=== PATIENT | female | born 1930 | race Caucasian/White ===

== ENCOUNTER 2016-07-26 01:35 | Emergency (ER) | payer MEDICARE ==
[2016-07-26] MEDS ORDERED: Albuterol/Ipratropium Neb 3 ML NEB NEB ONE (01:41)
[2016-07-26] MEDS ORDERED: METHYLPREDNISOLONE 125 MG/2 ML VIAL IV ONE (01:41)
[2016-07-26] MEDS ORDERED: NS 1,000 ML IV ONE (01:42)
[2016-07-26 01:46] VITALS: TEMP 98.2; BMI 26.6
--- NOTE | 2016-07-26 01:46 | EDPRACDOC ---
- General Information Chief Complaint: Dyspnea/Resp distress Stated Complaint: SHOB Time Seen by Provider: 07/26/16 01:41 Information Source: Patient, [employer] Mode Of Arrival: Ambulance Home Medications: Home Medications Benzonatate [Tessalon] 200 mg PO TID #20 per 07/26/16 Guaifenesin/Codeine Phosphate [Cheratussin AC Syrup] 5 ml PO Q4-6H #180 liquid 07/26/16 Levofloxacin [Levaquin] 750 mg PO DAILY #7 tablet 07/26/16 Prednisone [Deltasone, Orasone] 20 mg PO BID #12 tab 07/26/16 - History of Present Illness Symptoms Started: TODAY HPI: PT PRESENTS WITH INCREASED SHOB AND NON-PRODUCTIVE COUGH THAT STARTED TONIGHT. PT DENIES NAUSEA, VOMITING, CHILLS OR FEVER. Symptoms: Reports: Cough Recently Treated Infections:: Denies: Otitis media, Pneumonia, URI Recent Medications: Reports: None Relevant History Of: Reports: COPD Shortness of Breath: Mild Cough Frequency: Intermittent Cough Description: Reports: Moist, Congested Rhinorrhea: Reports: Clear Ear Symptoms: Reports: None ED Past Medical History - History Reviewed Yes Nurses notes reviewed and agree except as marked EDM Review of Systems - Review of Systems ROS Negative Except as Marked: Yes All systems reviewed and were negative except as marked - Physical Exam Constitutional: Alert Oriented to: Time, Person, Place Last recorded Vital Signs: Oxygen Pulse Oxygen Saturation O2 Device Oxygen Flow Rate Fraction of Inspired Oxygen ( FIO2) - HEENT Head: Normal ( normocephalic) Eye Exam: Normal (PERRL, EOMI, Sclera white) Oropharynx: Normal (Pharynx:Moist without exudate,Gums-no swelling) Tympanic Membrane: Normal Nose: No Symptoms Reported (septum midline) Neck: Normal (FROM, trachea at midline) - Respiratory/Cardiovascular Respiratory: Rales, Rhonchi, Wheezes Cardiovascular: Normal (RRR without murmur, gallop or rub) - GI Auscultation: Normal (NABS) Palpation: Normal (Soft,No rebound or guarding, non distended) Tenderness: Non tender Han's Sign: Negative Rectal Exam: Deferred - Musculoskeletal Back: Normal (Non-Tender) Extremities: Normal (Normal tone, Pulses 2+ No cyanosis or edema, FROM), Pedal Edema (1+ PITTING) - Integumentary Skin: Normal, Warm, Dry Lymphatics: Normal (no adenopathy) - Neurologic Memory Impaired: Normal Motor Function: Normal (Normal tone, Pulses 2+ No cyanosis or edema, FROM) Cranial Nerve: Normal (CN II-X11 intact sensation, strength 5/5) Cerebellar: Normal Mood Description: Normal Perception: Normal - Differential Diagnosis Bronchitis, Pneumonia - Re-evaluation Re-evaluation 1 Re-evaluation Time: 02:59 (VSS. NO ACUTE DISTRESS NOTED) - Results 07/26/16 01:45 07/26/16 01:45 - EKG EKG #1 EKG Time: 01:53 -: Yes EKG interpreted by me Rate: bpm: 95 [place]: LAD Rhythm: NSR (PULMONARY DISEASE PATTER) Block: None Hypertrophy: LVH ST: Normal Decision Time to Discharge: 03:26 - Departure Disposition: Home Condition: Stable Final Diagnosis: Pneumonia Heart failure Qualifiers: Heart failure type: unspecified heart failure type Heart failure chronicity: unspecified heart failure chronicity Qualified Code(s): I50.9 - Heart failure, unspecified Instructions: *Heart Failure (Activity, Diet, Worsening Symptoms, Weight Monitoring)(ED), Bacterial Pneumonia (ED) Education/Counseling Given To: Patient Education/Counseling Given Regarding: Diagnosis, Treatment, Prognosis, Follow Up Referrals: Zeferino Silva II, MD [Staff Physician] - One Week Prescriptions: Benzonatate [Tessalon] 200 mg PO TID #20 per Guaifenesin/Codeine Phosphate [Cheratussin AC Syrup] 5 ml PO Q4-6H #180 liquid Levofloxacin [Levaquin] 750 mg PO DAILY #7 tablet Prednisone [Deltasone, Orasone] 20 mg PO BID #12 tab Additional Instructions: INCREASE FLUID INTAKE. FOLLOW UP WITH PRIMARY CARE PROVIDER NEXT WEEK. TAKE ALL ANTIBIOTICS PRESCRIBED. RETURN TO THE ED FOR WORSENING SYMPTOMS OR CONCERNS.
[2016-07-26 02:05] LABS: AUTOMATED BASOPHIL 0.5 % (0-2); AUTOMATED EOSINOPHIL 3.3 % (0-5); AUTOMATED LYMPH 18.1 % (17-44); AUTOMATED NEUTROPHIL 68.1 % (45-76); MPV 8.7 fL (7.4-10.4)
[2016-07-26 02:13] LABS: ABG Draw Site Right Radial; ALLEN'S TEST PASS; TCO2 27.3 MMOL/L (23-27)
[2016-07-26 02:17] LABS: BLOOD UREA NITROGEN 17 MG/DL (7-17); CALC CORRECTED 8.5 MG/DL (8.4-10.2); CALCIUM 8.4 MG/DL (8.4-10.2); CALCULATED OSMOLALITY 276 MOs/Kg (270-290); CHLORIDE 104 mEq/L (98-107); CPK TOTAL WITH POSSIBLE MB 48 IU/L (30-134); GLUCOSE 144 MG/DL (70-99); SODIUM LEVEL 141 mEq/L (137-146); TOTAL PROTEIN 6.9 G/DL (6.3-8.2)
--- NOTE | 2016-07-26 02:48 | DIRPT ---
CLINICAL DATA: Cough, shortness of breath and congestion today. EXAM: CHEST 2 VIEW COMPARISON: None. FINDINGS: The heart is enlarged, there is tortuosity of thoracic aorta. Mild hyperinflation and undulation of the right hemidiaphragm. Ill-defined opacity in the posterior medial right lower lobe, and left costophrenic angle. Upper lungs are clear. No pulmonary edema, pleural effusion or pneumothorax. No acute osseous abnormalities are seen. Surgical clips in the left upper quadrant of the abdomen. IMPRESSION: 1. Ill-defined opacity posterior medial right lower lobe than periphery left lower lobe, likely atelectasis, however early pneumonia could have a similar appearance. 2. Cardiomegaly with tortuous thoracic aorta. Electronically Signed By: Prisca Rizo M.D. On: 07/26/2016 02:46
[2016-07-26] MEDS ORDERED: LEVOFLOXACIN 750 MG TAB PO ONE (02:54)
[2016-07-26] MEDS ORDERED: CEFTRIAXONE 1 GM in D5W 100 ML IV ONE (02:55)
[2016-07-26 03:07] VITALS: BP 183/84
[2016-07-26] MEDS ORDERED: FLUCONAZOLE 150 MG TAB PO ONE (04:05)
[2016-07-26 04:09] VITALS: PULSE 92
== END 2016-07-26 04:15 | disposition home or self-care (01) ==
LOC: ED 01:35
DX: J18.9 Pneumonia, unspecified organism (principal); I50.9 Heart failure, unspecified; J44.9 Chronic obstructive pulmonary disease, unspecified; Z79.899 Other long term (current) drug therapy
CPT/HCPCS: 36415; 36600; 71020; 80053; 82550; 82803; 83605; 83880; 84484; 85025; 87040; 93005; 94640; 96361; 96365; 96375; 99284; A9270; J0696; J2930; J7060; J7620; J3490